=== PATIENT | male | born 1985 | race Caucasian/White ===

== ENCOUNTER 2018-01-08 17:13 | Emergency (ER) | payer MEDICAID, OTHER ==
[2018-01-08 21:48] LABS: URINE BLOOD (Dip) POC 3+ (NEGATIVE); URINE GLUCOSE (Dip) POC Negative (NEGATIVE); URINE KETONES (Dip) POC Negative (NEGATIVE); URINE LEUKOCYTE EST (Dip) POC 3+ (NEGATIVE); URINE NITRITE (Dip) POC Negative (NEGATIVE); URINE TOTAL PROTEIN POC 2+ (NEGATIVE)
[2018-01-08 21:48] LABS: URINE PH (Dip) POC 7.5 (5.0-8.5)
[2018-01-08] MEDS: CEFTRIAXONE 1 GM INJ IM (22:09)
== END 2018-01-08 22:27 | disposition home or self-care (01) ==
LOC: FTE 17:13
DX: R30.0 Dysuria (principal)
CPT/HCPCS: 81003; 96372; 99284-25